=== PATIENT | female | born 1965 | race Caucasian/White ===

== ENCOUNTER → 2016-05-31 | Outpatient (CLI) | payer OTHER | LOC: MERGE 15:35 → FIMAGING 15:35 | PROVIDERS: ATTEND Obstetrics & Gynecology Gynecology | DX: N60.02 Solitary cyst of left breast (principal) ==

== ENCOUNTER → 2017-11-15 | Outpatient (CLI) | payer OTHER | LOC: FIMAGING 08:54 | PROVIDERS: ATTEND Family Medicine | DX: Z12.31 Encounter for screening mammogram for malignant neoplasm of breast (principal); R92.8 Other abnormal and inconclusive findings on diagnostic imaging of breast ==

== ENCOUNTER → 2017-12-15 | Outpatient (CLI) | payer OTHER | LOC: FIMAGING 08:47 | PROVIDERS: ATTEND Obstetrics & Gynecology Gynecology | DX: N60.02 Solitary cyst of left breast (principal) ==